=== PATIENT | female | born 1955 | race Caucasian/White ===

== ENCOUNTER 2023-12-11 06:36 | Outpatient (REF) | payer MEDICARE, OTHER, SELFPAY | END 2023-12-11 06:37 | disposition home or self-care (01) | LOC: HO.HOSX 06:36 | PROVIDERS: Visit Provider Orthopaedic Surgery | DX: Z13.89 Encounter for screening for other disorder (principal) ==

== ENCOUNTER 2023-12-24 09:51 | Outpatient (AMB) | payer MEDICARE, OTHER, SELFPAY ==
--- NOTE | 2023-12-24 09:56 | A.OFFVIS_ITS ---
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 Worley. The patient did undergo left total knee replacement surgery 2 years ago. She states that she recently had discomfort along the anterior aspect of her left knee which felt like ?nerve pain?. She denies any locking or giving way. The patient states that her discomfort has improved somewhat over the last few weeks. She denies any fevers or chills. 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 Accompanied by: Self / Same As Patient Allergies mold Allergy (Unknown, Unverified 12/24/23 09:56) SETS OFF BRONCHITIS tetracycline [TETRACYCLINE] Allergy (Unknown, Unverified 12/24/23 09:56) CYST IN ESOPHAGUS ENVIROMENTAL Allergy (Unknown, Uncoded 12/24/23 09:56) BRONCHITIS tetracycline Allergy (Unknown, Uncoded 12/24/23 09:56) rare side effect Medication List - Last Reconciled 12/24/23 by Agapito Worley MD alendronate 70 mg PO QWEEK [facility] Social History (Updated 12/24/23 @ 10:10 by BRIDGET Arvizu) Current occupation: rt handed Physical Exam Vital Signs: BMI result Body Mass Index 24.0 Const Other: Well-nourished well-developed very friendly female awake alert and oriented x3 in no acute distress Extrem Other: Bilateral lower extremity examination shows good capillary refill, no skin lesions noted, normal sensation light touch Left knee examination shows that the surgical incision is well healed, no eryth nargis, full active extension and flexion to 125 degrees, her patella tracks well Results Reviewed Results Reviewed: X-rays of the patient's left knee taken today show a total knee arthroplasty in good position with no signs of loosening, no acute bony abnormalities Assessment & Plan Assessment & Plan (1) Left knee pain: Code(s): M25.562 - Pain in left knee Category: Medical Plan Ms. Lieberman presents with intermittent left knee pain after undergoing left total knee replacement surgery 2 years ago of unclear etiology. She does not appear to have anything mechanically wrong with her total knee arthroplasty. Her symptoms are likely due to scar tissue formation versus nerve irritation. Thus, I will arrange for the patient to have an evaluation with Dr. Bello. She may be a candidate for a nerve block procedure to help with her discomfort. I will see her back following that appointment. Feel free to call me at any time should questions regarding her orthopedic management arise. I spent 22 minutes in reviewing the patient's records and imaging studies, seeing the patient and documenting in the medical record. Orders: Orders XR knee LT 3V Today M25.562 - Pain in left knee XR knee RT 3V Today M25.561 - Pain in right knee Referrals Pain Management Referral M25.562 - Pain in left knee Coding Level of Care Code Est Pt Level 2 (59365) Diagnoses Left knee pain M25.562
[2023-12-24 10:09] VITALS: BMI 24.0
== END 2023-12-24 10:53 | disposition home or self-care (01) ==
PROVIDERS: PCP Internal Medicine; Visit Provider Orthopaedic Surgery
DX: M25.562 Pain in left knee (principal)
CPT/HCPCS: 99213

== ENCOUNTER 2023-12-24 09:58 | Outpatient (REF) | payer MEDICARE, OTHER, SELFPAY ==
--- NOTE | ~2023-12-24 | XR_ITS ---
EXAMINATION: XR KNEE, LEFT CLINICAL INFORMATION: Pain in left knee COMPARISON: None available. TECHNIQUE: Four views of the left knee. FINDINGS: The patient is status post left total knee replacement with patellar button. No fracture. Small joint effusion. There is 4 mm bone metal lucency along the superior surface of the medial aspect of the femoral component. Alignment is anatomic. Joint spaces are maintained. Arterial calcification is noted. XR/XR knee LT 3V IMPRESSION: 1. Status post left total knee replacement. 2. 4 mm bone-metal lucency along the superior surface of the medial aspect of the femoral component.
== END 2023-12-24 09:59 | disposition home or self-care (01) ==
LOC: HO.HOSX 09:58
PROVIDERS: Visit Provider Orthopaedic Surgery
DX: M25.562 Pain in left knee (principal)
CPT/HCPCS: 73562

== ENCOUNTER 2024-01-03 09:30 | Outpatient (AMB) | payer MEDICARE, OTHER, SELFPAY ==
[2024-01-03 09:36] VITALS: BP 141/79; PULSE 69; RESP 14; O2SAT 98; BMI 24.2
--- NOTE | 2024-01-03 09:36 | MHC.OFFVIS ---
Vital Signs 01/03/24 09:36 Height 5 ft Weight 124 lb BMI 24.2 BP 141/79 H Blood Pressure Location Lt brachial Position Sitting Respiration 14 Pulse 69 Pulse Source Pulse Oximeter Pulse Oximetry (%) 98 Oxygen Delivery Method Room Air Intake Visit Reasons: Left knee pain/nerve block Allergies mold Allergy (Unknown, Verified 01/03/24 09:38) SETS OFF BRONCHITIS tetracycline [TETRACYCLINE] Allergy (Unknown, Verified 01/03/24 09:38) CYST IN ESOPHAGUS ENVIROMENTAL Allergy (Unknown, Uncoded 01/03/24 09:38) BRONCHITIS Medication List - Last Reconciled 01/03/24 by Emili Edgar LPN alendronate 70 mg PO QWEEK aspirin (Adult Aspirin Regimen) 81 mg PO DAILY cholecalciferol (vitamin D3) 25 mcg PO DAILY cod liver oil 4 caps PO DAILY [id number] 500-500-33.3-70 mg (Cosamin [place] (with Boswellia)) 3 tabs PO DAILY HPI HPI Left knee pain/nerve block: Details: 68-year-old female who presents today to the office for left knee pain. She underwent total left knee replacement two years ago and has been having pain around the left knee cap, which feels like a burning, stabbing, and needle-like sensation on and off. It started approximately two months ago. Her pain was initially associated with the swelling, which seemed to resolve. She recently had discomfort along the anterior aspect of her left knee, which felt like ?nerve pain. She denies locking or giving way. She described her pain as an aching sensation associated with pins and needles and a stabbing sensation around the knee cap on the left side. She also reports an aching pain in her right ankle. Her pain is rated at 6/10 around the left knee and 5/10 at the top of the right foot. 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 The pain is worse when she is moving during the daytime. Heat, cold, and topical medications make the pain better. Movements make the pain worse, and at rest, she does not seem to be having much pain. Medical history is notable for cerebrovascular accidents from issues with daily aspirin and fish oil. She is also taking Fosamax 70 mg weekly for osteoporosis. Prior to her knee replacement, she also had meniscus repair surgeries on both knees. In terms of past therapies, she has gotten physical therapy for her knee and her rotator cuff at [facility] with good effect. She has also undergone chiropractic manipulation as well as massage therapy for her knee and shoulder pain. She also does occupational therapy for her hand pain. She used to smoke 1.5 packs a day. She is a retired teacher. She is currently on baby aspirin. She deferred nerve blocks. She has tried the transcutaneous stimulation at her chiropractor?s office with some relief. [facility] Social History (Updated 12/24/23 @ 10:10 by BRIDGET Arvizu) Current occupation: rt handed Review of Systems Const All systems reviewed & are unremarkable except as noted in HPI and below Physical Exam Vital Signs: Last Vital Signs Pulse 69 01/03/24 09:36 Resp 14 01/03/24 09:36 BP 141/79 H 01/03/24 09:36 Pulse Ox 98 01/03/24 09:36 Oxygen Delivery Method Room Air 01/03/24 09:36 BMI result Body Mass Index 24.2 General: Appears afebrile. Alert and oriented. Mood and affect appropriate. Follows and participates in conversation appropriately. Respiratory effort is unlabored. Able to transition from sit to stand unassisted. Ambulates with bilaterally normal heel strike and toe off. Tenderness medial knee palpation. Results Reviewed Results Reviewed: 12/24/23: XR KNEE, LEFT FINDINGS: The patient is status post left total knee replacement with patellar button. No fracture. Small joint effusion. There is 4 mm bone metal lucency along the superior surface of the medial aspect of the femoral component. Alignment is anatomic. Joint spaces are maintained. Arterial calcification is noted. IMPRESSION: 1. Status post left total knee replacement. 2. 4 mm bone-metal lucency along the superior surface of the medial aspect of the femoral component. Assessment & Plan Assessment & Plan (1) Left knee pain: Comment: Status post TKR Code(s): M25.562 - Pain in left knee Category: Medical Plan Discussed a temporary nerve stimulator as a possible treatment option. Will proceed with the left saphenous nerve stimulator placement for her pain. Discussed the risks and benefits of the procedure with the patient in detail. All questions were answered. The patient will think about the procedure and let us know if she wants to proceed with the discussed plan. The brochure was provided to the patient. Scribed for Dr. Bello by Mata Gonzalez, biomedical analytical scientist, on 01/03/2024. I, Dr. Bello, have personally reviewed and agree with the information entered by the scribe. Coding Level of Care Code New Pt Level 4 (72079) Diagnoses Left knee pain M25.562
== END 2024-01-03 10:07 | disposition home or self-care (01) ==
PROVIDERS: PCP Internal Medicine; Visit Provider Internal Medicine
DX: M25.562 Pain in left knee (principal)
CPT/HCPCS: 99204

== ENCOUNTER → 2024-01-03 09:30 | Outpatient (BNVA) | payer MEDICARE, OTHER, SELFPAY | PROVIDERS: PCP Internal Medicine; Visit Provider Internal Medicine | DX: M25.562 Pain in left knee (principal); Z96.652 Presence of left artificial knee joint | CPT/HCPCS: 99202 ==